=== PATIENT | female | born 1955 | race Caucasian/White ===

== ENCOUNTER 2017-01-16 10:19 | Day surgery (SDC) | payer MEDICARE, OTHER ==
[~2017-01-16] VITALS: Ht 153.7 cm; Wt 52.2 kg
[~2017-01-16 10:19] MED LIST: AMOXICILLIN/CL500 MG PO; ASPIR-8181 MG OR; ASPIRIN LOW DOS81 M1 PO; ATIVAN1 MG OR; ATIVAN1 MG PO; CALCIUM600 MG PO; CIPRO XR500 M1 OR; CIPROFLOXACN250 MG PO; CREON 20 OR; CREON1 CAP PO; CREON24 PO; CREON24000 UNT PO; DARVOCET-N100 MG OR; DICLOFENAC SODI1.5 % TOP; EQL IBUPROFEN200 MG PO; FLUARIX QUADRIV1 IN1 IM; FLUARIX QUADRIV1 INJ IM; GLIPIZIDE ER5 M1 PO; GLIPIZIDE ER5 MG PO; HYDROCODONE/ACE1 TA1 PO; HYDROCODONE/ACE1 TA7 PO; IMODIUM OR; LEVOTHYROXIN50 MC1 PO; LEVOTHYROXIN50 MCG PO; LORTAB 5/3255 MG PO; MULTIVITAMIN PO; OSCAL 500/1 TAB PO; PRAVASTATIN SOD20 MG PO; PRAVASTATIN20 MG PO; RESTORIL15 MG OR; RESTORIL15 MG PO; TEMAZEPAM30 MG PO; VALTREX500 MG OR; ZOLOFT100 MG OR; ZOLOFT100 MG PO; ZOLOFT50 MG PO; ZOMETA4 MG/5 ML IV; ZPAK PO; ZYRTEC-D ALG PO
[2017-01-16 14:25] VITALS: BP 106/52
== END 2017-01-16 14:35 | disposition home or self-care (01) ==
LOC: ENDO 10:19
PROVIDERS: ATTEND Internal Medicine Gastroenterology
PROC: 0DBN8ZX Excision of Sigmoid Colon, Via Natural or Artificial Opening Endoscopic, Diagnostic (ICD-10-PCS; principal; 2017-01-16)
DX: Z12.11 Encounter for screening for malignant neoplasm of colon (principal); D12.5 Benign neoplasm of sigmoid colon; K64.4 Residual hemorrhoidal skin tags; K64.8 Other hemorrhoids; R10.13 Epigastric pain; R11.10 Vomiting, unspecified; K59.00 Constipation, unspecified; E11.9 Type 2 diabetes mellitus without complications; C90.00 Multiple myeloma not having achieved remission; F32.9 Major depressive disorder, single episode, unspecified; E03.9 Hypothyroidism, unspecified; Z94.84 Stem cells transplant status; Z86.010 Personal history of colon polyps; Z90.3 Acquired absence of stomach [part of]; Z90.411 Acquired partial absence of pancreas

== ENCOUNTER 2017-02-13 06:50 | Day surgery (SDC) | payer MEDICARE, OTHER ==
[2017-02-13 09:28] VITALS: BP 96/57
== END 2017-02-13 09:31 | disposition home or self-care (01) ==
LOC: ORM 06:50
PROVIDERS: ATTEND Internal Medicine Gastroenterology
PROC: 0DB98ZX Excision of Duodenum, Via Natural or Artificial Opening Endoscopic, Diagnostic (ICD-10-PCS; principal; 2017-02-13)
DX: R10.12 Left upper quadrant pain (principal); R14.0 Abdominal distension (gaseous); K29.70 Gastritis, unspecified, without bleeding; K21.9 Gastro-esophageal reflux disease without esophagitis; K26.9 Duodenal ulcer, unspecified as acute or chronic, without hemorrhage or perforation; K29.80 Duodenitis without bleeding; K86.89 Other specified diseases of pancreas; K59.00 Constipation, unspecified; E11.9 Type 2 diabetes mellitus without complications; E03.9 Hypothyroidism, unspecified; F32.9 Major depressive disorder, single episode, unspecified; C90.00 Multiple myeloma not having achieved remission; Z94.84 Stem cells transplant status; Z86.010 Personal history of colon polyps; Z98.890 Other specified postprocedural states

== ENCOUNTER → 2018-01-13 | Outpatient (REF) | payer MEDICARE, OTHER ==
[2018-01-13 09:26] LABS: ALBUMIN 4.3 g/dL (3.2-5.0); ALKALINE PHOSPHATASE 86 u/l (38-126); ANION GAP 14 (6-22 (CALC)); BILIRUBIN, TOTAL 0.3 mg/dL (0.0-1.4); BUN 29 mg/dL (8-23); BUN/CREATININE RATIO 32 (12-20 (CALC)); CALCULATED LDLCHOLESTEROL 94 mg/dL (62-129 (CALC)); CARBON DIOXIDE 21 mmol/l (22-30); CHLORIDE 111 mmol/l (95-108); CHOLESTEROL HDL RATIO 3.1 (<4.4 (CALC)); CREATININE 0.9 mg/dL (0.5-1.0); GFR > 60 ML/MIN (>=60 (CALC)); GFR FOR AFR.AMER. > 60 ML/MIN (>=60 (CALC)); HDL CHOLESTEROL 59 mg/dL (>=40); POTASSIUM 4.5 mmol/l (3.5-5.1); SGOT/AST 41 u/l (9-36); SODIUM 141 mmol/l (137-146); TOTAL CHOLESTEROL 183 mg/dl (0-199); TOTAL PROTEIN 7.7 g/dL (6.3-8.2); TRIGLYCERIDES REFLEX TO dLDL 147 mg/dl (30-149); VLDL CHOLESTROL 29 mg/dl (1-41 (CALC))
[2018-01-13 09:40] LABS: HEMATOCRIT 34.8 % (37.0-47.0); HEMOGLOBIN 11.1 g/dl (12.0-16.0); IMMATURE GRANULOCYTES 0.3 % (0.0-5.0); MEAN CELL VOLUME 100.9 fL CALC (80.0-100.0); MEAN CORPUSCULAR HGB 32.2 pG CALC (26.0-32.0); MEAN CORPUSCULAR HGB CONC 31.9 g/L CALC (32.0-36.0); NEUT# 3.86 thou/uL (2.00-7.15); RED BLOOD COUNT 3.45 mill/uL (4.20-5.60); RED CELL DISTRI WIDTH 12.6 % (11.5-15.5)
[2018-01-13 09:54] LABS: TSH, 3RD GENERATION 5.09 uIU/mL (0.47 - 4.68)
== END | disposition home or self-care (01) ==
LOC: LAB 08:26
PROVIDERS: ATTEND Internal Medicine Geriatric Medicine
DX: E78.5 Hyperlipidemia, unspecified (principal); E11.9 Type 2 diabetes mellitus without complications; E03.9 Hypothyroidism, unspecified; D64.9 Anemia, unspecified

== ENCOUNTER 2018-04-09 05:01 | Emergency (ER) | payer MEDICARE, OTHER ==
[~2018-04-09] VITALS: Ht 153.7 cm; Wt 44.0 kg
[2018-04-09 05:46] LABS: HEMATOCRIT 32.9 % (37.0-47.0); HEMOGLOBIN 10.8 g/dl (12.0-16.0); IMMATURE GRANULOCYTES 0.4 % (0.0-5.0); MEAN CORPUSCULAR HGB 32.8 pG CALC (26.0-32.0); MEAN CORPUSCULAR HGB CONC 32.8 g/L CALC (32.0-36.0); NEUT# 9.19 thou/uL (2.00-7.15); RED BLOOD COUNT 3.29 mill/uL (4.20-5.60)
[2018-04-09 05:47] LABS: URINE BILIRUBIN - DIPSTICK NEGATIVE (NEGATIVE); URINE BLOOD DIPSTICK LARGE (NEGATIVE); URINE COLOR YELLOW; URINE GLUCOSE - DIPSTICK NEGATIVE (NEGATIVE); URINE KETONE NEGATIVE (NEGATIVE); URINE LEUK ESTERASE NEGATIVE (NEGATIVE); URINE NITRITE - DIPSTICK NEGATIVE (Negative); URINE PH 5.5 (4.5-8.0); URINE PROTEIN - DIPSTICK NEGATIVE (NEG-TRACE); URINE SPECIFIC GRAVITY >=1.030; URINE UROBILINOGEN - DIPSTICK 0.2 E.U./dL (0.2)
[2018-04-09 05:59] LABS: ALKALINE PHOSPHATASE 78 u/l (38-126); AMYLASE < 30 u/l (30-110); ANION GAP 15 (6-22 (CALC)); BILIRUBIN, TOTAL 0.1 mg/dL (0.0-1.4); BUN 34 mg/dL (8-23); BUN/CREATININE RATIO 34 (12-20 (CALC)); CARBON DIOXIDE 20 mmol/l (22-30); CHLORIDE 108 mmol/l (95-108); GFR 56 ML/MIN (>=60 (CALC)); GFR FOR AFR.AMER. > 60 ML/MIN (>=60 (CALC)); LIPASE 10 u/l (23-300); POTASSIUM 4.4 mmol/l (3.5-5.1); SGOT/AST 32 u/l (9-36); SODIUM 139 mmol/l (137-146)
[2018-04-09 06:15] LABS: URINE BACTERIA RARE hpf; URINE RBC 25-50 RBC/hpf (0-5); URINE SQUAMOUS EPITHELIAL CELL FEW EPI/hpf (0-FEW); URINE WBC 0-2 WBC/hpf (0-5)
[2018-04-09] MEDS ORDERED: MOTRIN400 MG PO (07:24)
[2018-04-09] MEDS ORDERED: CEPHALEXIN500 MG PO (07:24)
[2018-04-09] MEDS ORDERED: TAMSULOSIN0.4 MG PO (07:24)
[2018-04-09] MEDS ORDERED: HYDROCO/APAP1 TA9 PO (07:24)
[2018-04-09 07:26] VITALS: BP 144/65
== END 2018-04-09 07:42 | disposition home or self-care (01) ==
LOC: ED 05:01
PROVIDERS: Emergency Medicine
DX: N13.2 Hydronephrosis with renal and ureteral calculous obstruction (principal); M89.8X8 Other specified disorders of bone, other site; C90.00 Multiple myeloma not having achieved remission; R73.03 Prediabetes
CPT/HCPCS: Q9967

== ENCOUNTER 2019-04-17 08:43 | Observation (INO) | payer MEDICARE, OTHER ==
[~2019-04-17] VITALS: Ht 152.4 cm; Wt 57.4 kg
[~2019-04-17 08:43] MED LIST changes: +CEPHALEXIN500 MG PO; +HYDROCO/APAP1 TA9 PO; +MOTRIN400 MG PO; +TAMSULOSIN0.4 MG PO
[2019-04-17 09:15] LABS: HEMATOCRIT 34.5 % (37.0-47.0); IMMATURE GRANULOCYTES 0.4 % (0.0-5.0); MEAN CELL VOLUME 96.9 fL CALC (80.0-100.0); MEAN CORPUSCULAR HGB 30.9 pG CALC (26.0-32.0); MEAN CORPUSCULAR HGB CONC 31.9 g/L CALC (32.0-36.0); NEUT# 7.55 thou/uL (2.00-7.15); RED BLOOD COUNT 3.56 mill/uL (4.20-5.60); RED CELL DISTRI WIDTH 12.5 % (11.5-15.5)
[2019-04-17 09:29] LABS: ALBUMIN 4.4 g/dL (3.2-5.0); ALKALINE PHOSPHATASE 81 u/l (38-126); ANION GAP 16 (6-22 (CALC)); BUN 36 mg/dL (8-23); BUN/CREATININE RATIO 38 (12-20 (CALC)); CARBON DIOXIDE 23 mmol/l (22-30); CHLORIDE 102 mmol/l (95-108); GFR 56 ML/MIN (>=60 (CALC)); GFR FOR AFR.AMER. > 60 ML/MIN (>=60 (CALC)); POTASSIUM 4.5 mmol/l (3.5-5.1); SGOT/AST 33 u/l (9-36); SODIUM 137 mmol/l (137-146); TOTAL PROTEIN 7.9 g/dL (6.3-8.2)
[2019-04-17 09:30] LABS: BILIRUBIN, TOTAL 0.3 mg/dL (0.0-1.4)
[2019-04-17 09:33] LABS: AMYLASE 39 u/l (30-110); LIPASE < 10 u/l (23-300)
[2019-04-17 09:46] LABS: MYOGLOBIN 51 ng/mL (0 - 62)
[2019-04-17 10:18] LABS: URINE BILIRUBIN - DIPSTICK NEGATIVE (NEGATIVE); URINE BLOOD DIPSTICK NEGATIVE (NEGATIVE); URINE COLOR YELLOW; URINE GLUCOSE - DIPSTICK NEGATIVE (NEGATIVE); URINE KETONE NEGATIVE (NEGATIVE); URINE LEUK ESTERASE NEGATIVE (NEGATIVE); URINE NITRITE - DIPSTICK NEGATIVE (Negative); URINE PH 5.5 (4.5-8.0); URINE PROTEIN - DIPSTICK NEGATIVE (NEG-TRACE); URINE SPECIFIC GRAVITY 1.015; URINE UROBILINOGEN - DIPSTICK 0.2 E.U./dL (0.2)
[2019-04-17] MEDS ORDERED: METFORMIN500 M2 PO (10:33)
[2019-04-17 11:56] VITALS: BP 103/55
[2019-04-17 17:00] VITALS: BP 95/60
[2019-04-17 19:49] VITALS: BP 116/62
[2019-04-17 22:50] VITALS: BP 111/68
[2019-04-18 09:22] VITALS: BP 115/66
[2019-04-18 11:00] VITALS: BP 131/78
[2019-04-18 15:25] VITALS: BP 112/76
[2019-04-18 19:01] VITALS: BP 137/54
[2019-04-18 23:40] VITALS: BP 119/56
[2019-04-19 03:41] VITALS: BP 129/58
[2019-04-19 06:44] VITALS: BP 118/73
[2019-04-19 06:45] VITALS: BP 115/67; BP 119/74
[2019-04-19 07:57] VITALS: BP 101/64
[2019-04-19 11:15] VITALS: BP 125/69
== END 2019-04-19 12:14 | disposition home or self-care (01) ==
LOC: ED 08:43 → ED-I 11:00 → ED 11:12 → MS2 11:25
PROVIDERS: Emergency Medicine; ADMIT Internal Medicine; ATTEND Internal Medicine
DX: I95.1 Orthostatic hypotension (principal); E86.0 Dehydration; C90.01 Multiple myeloma in remission; E11.9 Type 2 diabetes mellitus without complications; K86.81 Exocrine pancreatic insufficiency; F41.9 Anxiety disorder, unspecified; F32.9 Major depressive disorder, single episode, unspecified; Z79.84 Long term (current) use of oral hypoglycemic drugs; Z94.84 Stem cells transplant status; Z90.411 Acquired partial absence of pancreas
CPT/HCPCS: G0378

== ENCOUNTER 2019-12-26 10:43 | Emergency (ER) | payer MEDICARE, OTHER ==
[~2019-12-26] VITALS: Ht 152.4 cm; Wt 60.0 kg
[~2019-12-26 10:43] MED LIST changes: +METFORMIN500 M2 PO
[2019-12-26] MEDS ORDERED: NAPROXEN500 MG PO (11:34)
[2019-12-26 12:44] VITALS: BP 148/67
[2019-12-26] MEDS ORDERED: TEMAZEPAM30 MG PO (12:46)
[2019-12-26] MEDS ORDERED: PRAVASTATIN SOD20 MG PO (12:49)
[2019-12-26] MEDS ORDERED: CREON24000 UNT PO (12:49)
== END 2019-12-26 11:55 | disposition home or self-care (01) ==
LOC: ED 10:43
DX: S93.401A Sprain of unspecified ligament of right ankle, initial encounter (principal); C90.00 Multiple myeloma not having achieved remission; E11.9 Type 2 diabetes mellitus without complications; X58.XXXA Exposure to other specified factors, initial encounter; Z87.311 Personal history of (healed) other pathological fracture

== ENCOUNTER 2021-12-30 11:19 | Emergency (ER) | payer MEDICARE, OTHER ==
[2021-12-30] VITALS (10 sets, daily range): BP systolic 101–128; BP diastolic 53–107
[~2021-12-30] VITALS: Ht 152.4 cm; Wt 55.4 kg
[~2021-12-30 11:19] MED LIST changes: +NAPROXEN500 MG PO
[2021-12-30 12:45] LABS: HEMOGLOBIN 11.1 g/dl (12.0-16.0); MEAN CELL VOLUME 98.3 fL CALC (80.0-100.0); MEAN CORPUSCULAR HGB 32.1 pG CALC (26.0-32.0); MEAN CORPUSCULAR HGB CONC 32.6 g/dL CAL (32.0-36.0); RED BLOOD COUNT 3.46 mill/uL (4.20-5.60); RED CELL DISTRI WIDTH 14.5 % (11.5-15.5)
[2021-12-30 12:46] LABS: NEUT# 7.73 thou/uL (2.00-7.15)
[2021-12-30 12:53] LABS: IMMATURE GRANULOCYTES 0.1 % (0.0-5.0)
[2021-12-30 13:01] LABS: ACT PARTIAL THROMBO TIME 20.2 SECONDS (20.0-32.5); PROTHROMBIN TIME 9.7 SECONDS (9.0-12.5)
[2021-12-30 13:51] LABS: URINE COLOR YELLOW
[2021-12-30 13:52] LABS: URINE BILIRUBIN - DIPSTICK NEGATIVE (NEGATIVE); URINE BLOOD DIPSTICK NEGATIVE (NEGATIVE); URINE GLUCOSE - DIPSTICK >=1000 mg/dL (NEGATIVE); URINE KETONE NEGATIVE (NEGATIVE); URINE LEUK ESTERASE NEGATIVE (NEGATIVE); URINE NITRITE - DIPSTICK NEGATIVE (Negative); URINE PH 5.5 (4.5-8.0); URINE PROTEIN - DIPSTICK NEGATIVE (NEG-TRACE); URINE SPECIFIC GRAVITY 1.015; URINE UROBILINOGEN - DIPSTICK 0.2 E.U./dL (0.2)
[2021-12-30 13:55] LABS: ALBUMIN 4.4 g/dL (3.2-5.0); ANION GAP 16 (6-22 (CALC)); BILIRUBIN, TOTAL 0.2 mg/dL (0.0-1.4); BUN 24 mg/dL (8-23); BUN/CREATININE RATIO 31 (12-20 (CALC)); CARBON DIOXIDE 18 mmol/l (22-30); CHLORIDE 109 mmol/l (95-108); CPK 25 u/l (30-165); CREATININE 0.8 mg/dL (0.5-1.0); GFR FOR AFR.AMER. > 60 ML/MIN (>=60 (CALC)); GFR OTHER RACES > 60 ML/MIN (>=60 (CALC)); MYOGLOBIN 55 ng/mL (0 - 62); POTASSIUM 4.1 mmol/l (3.5-5.1); SODIUM 139 mmol/l (137-146); TOTAL PROTEIN 7.7 g/dL (6.3-8.2)
[2021-12-30 13:59] LABS: ALKALINE PHOSPHATASE 141 u/l (38-126); MAGNESIUM 1.5 mg/dL (1.6-2.3); SGOT/AST 315 u/l (9-36)
[2021-12-30] MEDS ORDERED: MAGNESIUM OXID400 M1 PO (15:21)
== END 2021-12-30 15:45 | disposition home or self-care (01) ==
LOC: ED 11:19
PROVIDERS: Family Medicine
DX: R53.1 Weakness (principal); E83.42 Hypomagnesemia; R74.8 Abnormal levels of other serum enzymes; E11.9 Type 2 diabetes mellitus without complications; C90.00 Multiple myeloma not having achieved remission; D64.81 Anemia due to antineoplastic chemotherapy; T45.1X5A Adverse effect of antineoplastic and immunosuppressive drugs, initial encounter; Z79.84 Long term (current) use of oral hypoglycemic drugs
CPT/HCPCS: Q9967

== ENCOUNTER 2023-11-11 19:09 | Inpatient (IN) | payer MEDICARE, OTHER ==
[2023-11-11] VITALS (16 sets, daily range): BP systolic 103–124; BP diastolic 45–80
[~2023-11-11] VITALS: Ht 152.4 cm; Wt 47.2 kg
[~2023-11-11 19:09] MED LIST changes: +ATIVAN1 M1 PO; +FOLATE400 MCG PO; +MAGNESIUM OXID400 M1 PO; +PRESERVISION AREDS 2 PO; +VALTREX500 MG PO; +VITAMIN C1000 MG PO; +VITAMIN D325 MCG PO
[2023-11-11] MEDS ORDERED: VANCOMYCIN HCL 1 GM in SODIUM CHLORIDE 0.9% 250 ML IV STA (19:16)
[2023-11-11] MEDS ORDERED: PIPERACILLIN Sodium-Tazobactam 4.5 GM in SODIUM CHLORIDE 0.9% 100 ML IV ONE (19:20)
[2023-11-11] MEDS ORDERED: SODIUM CHLORIDE 0.9% 1,000 ML BAG IV ONE (19:20)
[2023-11-11 19:46] LABS: BASO% 0.1 % (0-3); EOS% 0.4 % (0-8); HEMATOCRIT 26.7 % (37.0-47.0); HEMOGLOBIN 8.8 g/dl (12.0-16.0); IMMATURE GRANULOCYTES 1.6 % (0.0-5.0); LYMPH% 3.9 % (15-41); MEAN CELL VOLUME 103.5 fL CALC (80.0-100.0); MEAN CORPUSCULAR HGB 34.1 pG CALC (26.0-32.0); MONO% 11.6 % (2-13); NEUT# 14.54 thou/uL (2.00-7.15); NEUT% 82.4 % (42-76); RED BLOOD COUNT 2.58 mill/uL (4.20-5.60); RED CELL DISTRI WIDTH 14.1 % (11.5-15.5)
[2023-11-11 19:54] LABS: ALBUMIN 3.1 g/dL (3.2-5.0); ALKALINE PHOSPHATASE 85 u/l (38-126); ANION GAP 12 (6-22 (CALC)); BILIRUBIN, TOTAL 0.2 mg/dL (0.02-1.3); BUN 39 mg/dL (8-23); BUN/CREATININE RATIO 27 (12-20 (CALC)); CARBON DIOXIDE 17 mmol/l (22-30); CHLORIDE 110 mmol/l (95-108); CREATININE 1.4 mg/dL (0.5-1.0); ESTIMATED GFR 41 ML/MIN (>=90 (CALC)); POTASSIUM 3.8 mmol/l (3.5-5.1); SGOT/AST 26 u/l (9-36); SODIUM 135 mmol/l (137-146)
[2023-11-11 20:10] LABS: ACT PARTIAL THROMBO TIME 28.5 SECONDS (20.0-32.5)
[2023-11-11 20:12] LABS: INTERNATIONAL NORMALIZED RATIO 1.3 RATIO (0.7-1.3); PROTHROMBIN TIME 12.7 SECONDS (9.0-12.5)
[2023-11-11] MEDS ORDERED: ACETAMINOPHEN 325 MG/TAB PO PRN (21:25)
[2023-11-11] MEDS ORDERED: MAGNESIUM HYDROXIDE 30 ML UDC PO PRN (21:25)
[2023-11-11] MEDS ORDERED: SODIUM CHLORIDE 0.9% 1,000 ML IV PRN (21:25)
[2023-11-11] MEDS ORDERED: Heparin SODIUM (Porcine) 5,000 UNITS/ML SDV SC SCH (21:50)
[2023-11-11] MEDS ORDERED: CEFEPIME HYDROCHLORIDE 1 GM in SODIUM CHLORIDE 0.9% 50 ML IV SCH (22:00)
[2023-11-11 22:18] LABS: URINE BILIRUBIN - DIPSTICK Negative (NEGATIVE); URINE BLOOD DIPSTICK Negative (NEGATIVE); URINE GLUCOSE - DIPSTICK Negative (NEGATIVE); URINE KETONE Negative (NEGATIVE); URINE LEUK ESTERASE Negative (NEGATIVE); URINE NITRITE - DIPSTICK Negative (Negative); URINE PH 5.5 (4.5-8.0); URINE PROTEIN - DIPSTICK 30 mg/dL (NEG-TRACE); URINE UROBILINOGEN - DIPSTICK 0.2 E.U./dL (0.2)
[2023-11-11 22:28] LABS: URINE COLOR Yellow
[2023-11-11 22:39] LABS: URINE BACTERIA FEW hpf
--- NOTE | 2023-11-11 23:19 | NUR ---
TO CT VIA STRETCHER. IV FLUIDS/ANTIBIOTICS COMPLETED. PT HAS VOIDED X 2 AND PASSED STOOL X 3. STOOL SAMPLE SENT.
--- NOTE | 2023-11-12 00:15 | NUR ---
REPORT TO GABRIEL MA/ICU.
[2023-11-12] MEDS ORDERED: PHILLIPS MOM311 MG PO (00:29)
[2023-11-12] MEDS ORDERED: KLOR-CON M1010 MEQ PO (00:31)
[2023-11-12] MEDS ORDERED: B-COMPL12 PO (00:33)
[2023-11-12] MEDS ORDERED: TEMAZEPAM30 MG PO (00:34)
[2023-11-12] MEDS ORDERED: ALL DAY ALLG10 MG PO (00:34)
[2023-11-12] MEDS ORDERED: METAMUCIL0.36 GM (00:35)
[2023-11-12] MEDS ORDERED: TRICOR145 MG PO (00:36)
--- NOTE | 2023-11-12 00:37 | NUR ---
MED REC COMPLETED. PT TO FLOOR VIA STRETCHER.
[2023-11-12] MEDS ORDERED: VANCOMYCIN HCL 125 MG/CAP PO SCH (06:00)
--- NOTE | 2023-11-12 07:51 | NUR ---
PT RESTING IN BED, NO COMPLAINTS AT THIS TIME, CALLED AND WAS UPDATED ON PTS STATUS PER PTS WANTS. AOX3, VSS, NSR ON MONITOR. PAIN DENIES PAIN AT THIS TIME. PT ON CONTACT PRECAUTIONS FOR CDIFF
[2023-11-12] MEDS ORDERED: LORazepam 1 MG/TAB PO PRN (07:55)
[2023-11-12 08:05] LABS: BASO% 0.1 % (0-3); EOS% 0.1 % (0-8); HEMATOCRIT 23.5 % (37.0-47.0); HEMOGLOBIN 7.7 g/dl (12.0-16.0); IMMATURE GRANULOCYTES 1.7 % (0.0-5.0); LYMPH% 4.7 % (15-41); MEAN CELL VOLUME 102.6 fL CALC (80.0-100.0); MEAN CORPUSCULAR HGB 33.6 pG CALC (26.0-32.0); MEAN CORPUSCULAR HGB CONC 32.8 g/dL CAL (32.0-36.0); MONO% 10.9 % (2-13); NEUT# 12.75 thou/uL (2.00-7.15); NEUT% 82.5 % (42-76); RED BLOOD COUNT 2.29 mill/uL (4.20-5.60); RED CELL DISTRI WIDTH 14.1 % (11.5-15.5)
[2023-11-12 08:24] LABS: BILIRUBIN, TOTAL 0.2 mg/dL (0.02-1.3); CREATININE 1.1 mg/dL (0.5-1.0)
[2023-11-12 08:31] LABS: ALBUMIN 2.1 g/dL (3.2-5.0); POTASSIUM 2.9 mmol/l (3.5-5.1); TOTAL PROTEIN 4.4 g/dL (6.3-8.2)
--- NOTE | 2023-11-12 09:50 | NUR ---
PT IS RESTING IN BED WITH EYES CLOSED, NO DISTRESS NOTED. PT IN SEMI FOWLERS POSITION ON CARDIAC MONITORING SYSTEM. CALL LIGHT IN REACH AND BED IN LOW POSITION WITH WHEELS LOCKED
[2023-11-12] MEDS ORDERED: PANCREATIC ENZYMES 12 000 UNITS LIPASE PO SCH (11:00)
--- NOTE | 2023-11-12 11:50 | NUR ---
PT IS SITTING UP IN BED EATING MEAL, WHEN ASKED ABOUT DISTRESS OR PAIN PT STATES THAT SHE REMAINS PAIN FREE AND HAS NO COMPLAINTS AT THIS TIME. WILL CONTINUE TO MONITOR FOR SAFETY.
[2023-11-12] MEDS ORDERED: MAGNESIUM SULFATE HEPTAHYDRATE 50 ML IV SCH (13:30)
[2023-11-12] MEDS ORDERED: POTASSIUM CHLORIDE 20 MEQ/TAB PO SCH (13:30)
--- NOTE | 2023-11-12 13:50 | NUR ---
PT IS SITTING IN BED COMFORTABLY WATCHING TV. PT WAS CHANGED AND GIVEN A SMALL BED BATH DUE TO HAVING INCONTINENT EPISODE WITH STOOL. PT IS ON ISOLATION PRECAUTIONS DUE TO CDIFF AND SALMONELLA. PT DENIES PAIN.
--- NOTE | 2023-11-12 15:50 | NUR ---
PT IS RESTING PEACEFULLY WITH EYES CLOSED. VSS, NO CONCERNS OR DISTRESS. BED IN LOW POSITION WITH WHEELS LOCKED. CALL LIGHT IN REACH AND CARDIAC MONITORING IN PLACE
--- NOTE | 2023-11-12 17:50 | NUR ---
PT IN BED EATING DINNER, VOICES NO CONCERNS AT THIS TIME. VSS, WILL CONTINUE TO MONITOR
--- NOTE | 2023-11-12 18:50 | NUR ---
SBAR REPORT GIVEN TO ADELA RIOS
--- NOTE | 2023-11-12 19:00 | NUR ---
RECEIVED REPORT FROM PREVIOUS NURSE. CALL LIGHT IS AT BEDSIDE. NO C/O PAIN OR SOB AT THIS TIME.
[2023-11-12 19:54] VITALS: BP 122/80
[2023-11-12] MEDS ORDERED: SODIUM CHLORIDE 0.9% 500 ML IV SCH (20:15)
[2023-11-12] MEDS ORDERED: TEMAZEPAM 15 MG/CAP PO SCH (21:00)
[2023-11-12 21:50] VITALS: BP 124/57
[2023-11-12 22:18] VITALS: BP 118/57
--- NOTE | 2023-11-12 22:50 | NUR ---
PATIENT VITALS ARE WITHIN NORMAL LIMITS. NO C/O PAIN , NO C/O SOB. PT CONSENTED TO RECEIVING PACKED RED BLOOD CELLS.PATIENT IS VERIFIED AND TOLERATING TRANSFUSION AT THIS TIME. CALL LIGHT IS AT BED SIDE.
[2023-11-12 23:03] VITALS: BP 122/51
[2023-11-12 23:56] VITALS: BP 122/51
[2023-11-13] VITALS (18 sets, daily range): BP systolic 105–139; BP diastolic 48–68
--- NOTE | 2023-11-13 00:35 | NUR ---
PATIENT TRANSFUSION COMPLETED. PT'S VS REMAIND WNL. CALL LIGHT IS AT BEDSIDE
--- NOTE | 2023-11-13 04:15 | NUR ---
PATIENT CLEANED. NO REPORTS OF PAIN OR SOB. NEW IV LINE STARTED DUE TO ACCIDENTAL REMOVAL BY PATIENT. PT NOW HAS A 22 IN HER LEFT WRIST. CALL LIGHT IS WITHIN REACH.
[2023-11-13 05:10] LABS: MEAN CELL VOLUME 97.1 fL CALC (80.0-100.0); MEAN CORPUSCULAR HGB 32.7 pG CALC (26.0-32.0); MEAN CORPUSCULAR HGB CONC 33.7 g/dL CAL (32.0-36.0); RED BLOOD COUNT 3.42 mill/uL (4.20-5.60); RED CELL DISTRI WIDTH 14.9 % (11.5-15.5)
[2023-11-13 05:24] LABS: HEMATOCRIT 33.2 % (37.0-47.0); HEMOGLOBIN 11.2 g/dl (12.0-16.0)
[2023-11-13 05:38] LABS: BILIRUBIN, TOTAL 0.3 mg/dL (0.02-1.3); CREATININE 0.9 mg/dL (0.5-1.0); MAGNESIUM 1.6 mg/dL (1.6-2.3); POTASSIUM 3.4 mmol/l (3.5-5.1); TOTAL PROTEIN 4.3 g/dL (6.3-8.2)
--- NOTE | 2023-11-13 06:22 | NUR ---
PATIENT CLEANED. CALL LIGHT IS WITHIN REACH. MED PASS COMPLETED. PATIENT IS CURRENTLY IN BED.
--- NOTE | 2023-11-13 07:33 | NUR ---
Dr Anderson present at bedside to assess pt and discuss plan of care
--- NOTE | 2023-11-13 07:33 | NUR ---
pt awake in bed; no apparent distress noted; pt offers no complaints; assessment completed at this time; pt alert and oriented; denies pain; no n/v noted; resp even and unlabored; lungs clear; skin color wnl; ra; hr reg; pulses present; no edema noted; st on monitor; abd soft/tender with bs present; pt with freq loose stool, precautions continued; purewick intact with clear yellow urine; adult brief in place; pt instructed to notify staff of stool incont for pericare; #22 to lw patent with ivf infusing without complication; no redness or edema noted at site; redness noted to coccyx, freq loose stools; plan of care/ am meds explained; call light within reach; will continue to monitor
--- NOTE | 2023-11-13 08:13 | NUR ---
awake in bed eating breakfast; offers no complaints; iv intact; call light within reach; will continue to monitor
--- NOTE | 2023-11-13 10:19 | NUR ---
resting in bed with eyes closed; no apparent distress noted; iv intact and patent; st on monitor; call light within reach; will continue to monitor
--- NOTE | 2023-11-13 12:03 | NUR ---
awake in bed eating lunch; offers no complaints; iv intact and patent; no redness or edema noted at site; st on monitor; call light within reach; will continue to monitor
--- NOTE | 2023-11-13 12:05 | NUR ---
telehealth consult completed with SERJIO Campoverde
--- NOTE | 2023-11-13 14:14 | NUR ---
awake in bed; pericare per staff; offers no complaints; iv intact and patent; st on monitor; call light within reach; will continue to monitor
--- NOTE | 2023-11-13 16:12 | NUR ---
awake in bed; offers no complaints; no apparent distress noted; st on monitor; call light within reach; will continue to monitor
[2023-11-13] MEDS ORDERED: VANCOMYCIN HCL 125 MG/CAP PO SCH (18:00)
--- NOTE | 2023-11-13 18:01 | NUR ---
pt awake in bed eating dinner; offers no complaints; iv intact and patent; no redness or edema noted at site; st on monitor; call light within reach
[2023-11-13] MEDS ORDERED: MAGNESIUM SULFATE HEPTAHYDRATE 50 ML IV SCH (19:10)
[2023-11-13] MEDS ORDERED: POTASSIUM CHLORIDE 20 MEQ/TAB PO SCH (19:10)
--- NOTE | 2023-11-13 20:00 | NUR ---
PATIENT BS 303, NEW ORDER FOR FOR MEDIUM SLIDING SCALE.
--- NOTE | 2023-11-13 20:00 | NUR ---
RECEIVED REPORT FO NURSE MONICA NEGRON RESTING IN BED, ALERT ORIENTED, CALLED HAD A BM X 1 YELOO IN COLOR SOFT, IV ON 18 ON LT WRIST NS @ 100CC/HR INFUSING WELL, IV ON RAC G 20 OCCLUDED, REMOVED, ON NEUROPSYCHIATRIC AIDE, MONICA FEBRILE 101.2, WILL MEDICATE, PATIENT CLEANED, CALL LIGHT IN REACHED.
[2023-11-13] MEDS ORDERED: DEXTROSE 50% 50 ML/SYR IV PRN (20:15)
[2023-11-13] MEDS ORDERED: DEXTROSE 250 ML IV PRN (20:15)
[2023-11-13] MEDS ORDERED: INSULIN LISPRO 100 UNITS/ML ML SC SCH (21:00)
--- NOTE | 2023-11-13 21:43 | NUR ---
PATIENT HAD ANOTHER BM SMALL LOOSE, PATIENT CLEANED, NOT IN DISTRESS, CALL LIHT IN REACHED.
[2023-11-14] VITALS (28 sets, daily range): BP systolic 74–159; BP diastolic 37–73
--- NOTE | 2023-11-14 00:16 | NUR ---
DUE PO VANCO GIVEN, PATIENT AFEBRILE A THIS TIME, BREATHING UNLABORED CALL LIGHT IN REACHED.
--- NOTE | 2023-11-14 02:00 | NUR ---
PATIENT TURNED AND REPOSITIONED, PATIENT NOT IN DISTRESS, CALL LIGHT IN REACHED.
--- NOTE | 2023-11-14 04:33 | NUR ---
MONICA C/O HEADACHE, MONICA HAD ANOTHER BM X 3 LOOSE, PATIENT CLEANED, PATIENT BLOOD SUGAR CHECKED 179.PATIENT CURRENTLY RESTING ON LEFT SIDE, CALL LIGHT IN REACHED.
--- NOTE | 2023-11-14 05:55 | NUR ---
PATIENT RESTING IN BED. RELIEVED FROM HEADACHE, NOT IN DISTRESS, BREATHING UNLABORED CALL LIGHT IN REACHED, REAMAINS ON CONTACT PLUS ISOLATION, CALL LIGHT IN REACHED.
[2023-11-14 06:29] LABS: HEMATOCRIT 32.6 % (37.0-47.0); HEMOGLOBIN 11.1 g/dl (12.0-16.0); MEAN CELL VOLUME 96.7 fL CALC (80.0-100.0); MEAN CORPUSCULAR HGB 32.9 pG CALC (26.0-32.0); RED BLOOD COUNT 3.37 mill/uL (4.20-5.60); RED CELL DISTRI WIDTH 15.3 % (11.5-15.5)
[2023-11-14 06:43] LABS: ALBUMIN 1.9 g/dL (3.2-5.0); BILIRUBIN, TOTAL 0.4 mg/dL (0.02-1.3); CREATININE 0.9 mg/dL (0.5-1.0); MAGNESIUM 1.9 mg/dL (1.6-2.3); TOTAL PROTEIN 4.2 g/dL (6.3-8.2)
--- NOTE | 2023-11-14 07:10 | NUR ---
PT LAYING IN BED RESTING WITH EYES CLOSED, AROUSES EASILY TO VERBAL STIMULI, PT A&O X3, DENIES ANY PAIN AT THIS TIME, PUPILS ARE PERRL, BREATHING IS EVEN AND UNLABORED, LUNG SOUNDS CLEAR IN ALL BANDA, HEART SOUNDS NORMAL S1 S2, ABD SOFT AND DISTENDED WITH ACTIVE BOWEL SOUNDS, STRONG RADIAL PULSES, WEAK PEDAL PULSES, SAFETY MEASURES REINFORCED, CALL PAIGE WITHIN REACH
--- NOTE | 2023-11-14 08:00 | NUR ---
SETUP ASSISTANCE PROVIDED WITH KELVIN PHAM
[2023-11-14] MEDS ORDERED: YEAST (S. BOULARDII)(S. CEREVI 250 MG CAP PO SCH (09:00)
--- NOTE | 2023-11-14 09:00 | NUR ---
PT ASSISTED WITH GETTING FRESHENED UP, MINIMAL ASSISTANCE NEEDED, PT TOLERATED WELL, CALL PAIGE WITHIN REACH
--- NOTE | 2023-11-14 09:15 | NUR ---
PT HAS A VISITOR AT BEDSIDE, VERBALIZES NO COMPLAINTS, CALL PAIGE WITHIN REACH
[2023-11-14] MEDS ORDERED: ZINC OXIDE TOP SCH (09:30)
[2023-11-14] MEDS ORDERED: BOUDREAUX'S BUTT PASTE ZINC OXIDE 57 G PASTE EX SCH (09:30)
--- NOTE | 2023-11-14 10:00 | NUR ---
PT ASSISTED WITH GETTING OUT OF BED TO THE RECLINER, PT AMBULATED WITH A SLOW UNSTEADY GAIT, ONCE SEATED IN THE RECLINER PT WANTED THE BSC, PT ASSISTED TO THE BSC, PT ASSISTED WITH GETTING CLEANED UP AND GETTING BACK TO BED PER PT'S REQUEST. SAFETY MEASURES REINFORCED, CALL PAIGE WITHIN REACH
[2023-11-14] MEDS ORDERED: CIPROFLOXACIN 250 MG/TAB PO SCH (11:30)
--- NOTE | 2023-11-14 11:55 | NUR ---
SETUP ASSISTANCE PROVIDED WITH LUNCH TRAY, PT DENIES ANY OTHER NEEDS AT THIS TIME, CALL PAIGE WITHIN REACH
--- NOTE | 2023-11-14 13:15 | NUR ---
PT ASSISTED WITH REPOSITIONING, PT VERBALIZED NO COMPLAINTS AT THIS TIME, CALL PAIGE WITHIN REACH
--- NOTE | 2023-11-14 14:09 | NUR ---
VISITOR AT BEDSIDE
--- NOTE | 2023-11-14 17:15 | NUR ---
SETUP ASSISTANCE PROVIDED WITH PM MEAL
--- NOTE | 2023-11-14 18:32 | NUR ---
PT CHANGED MULTIPLE TIMES TODAY, PT EDUCATED ABOUT THE IMPORTANCE OF LETTING STAFF KNOW WHEN SHE FEELS THE NEED TO HAVE A BM TO HELP PREVENT SKIN BREAK DOWN, PT VERBALIZED UNDERSTANDING
--- NOTE | 2023-11-14 20:00 | NUR ---
RECEIVED REPORT FROM NURSE KAT, PATIENT RESTING IN BED, PATIENT ALERT ORIENTED, PATINET FEELS WEAK, PATINET HAD A BM CALLED NOT ABLE TO REACHED THE COMODE, PATINET CLEANED UP, PATINET IV ON LEFT WRIST G 22 NS INFUSING WELL AT 100CC/HR, HOOKED ON CURRENCY EXCHANGE SPECIALIST SINUS TACH ON MONITOR, PATINET LUNG SOUNDS CLEAR, DENIES PAIN AT THSI TIME, SOME REDNESS NOTED ON RECTAL AREA FROM FREQUENT BM. BUTT PASTE APPLIED, CALL LIGHT IN REACHED.
--- NOTE | 2023-11-14 22:20 | NUR ---
MONICA ASSISTED TO BED SIDE COMODE BM LOOSE MEDIUM, PERICARE PROVIDED, APPLIED BARRIER CREAM, MONICA BACK IN BED, CALL LIGHT IN REACHED.
[2023-11-15] VITALS (18 sets, daily range): BP systolic 98–127; BP diastolic 43–65
--- NOTE | 2023-11-15 00:17 | NUR ---
PATIENT HAD AN INCONTINENCE OF BOTH BOWEL AND BLADDER, PERINEAL CARE DONE, PATIENT REMAINS ON CONTACT PLUS FOR CDIFF AND SALMONELLA.
--- NOTE | 2023-11-15 02:02 | NUR ---
PATIENT RESTING IN BED,WITH EYES CLOSD, BREATING EVEN UNLABORED NO DISCOMFORTS NOTED AT THSI TIME.
--- NOTE | 2023-11-15 03:28 | NUR ---
PATIENT HAD ANOTHER BM LOOSE, YELLOWIH IN COLOR, PERICARE PROVIDED, PATIENY AFEBRILE 99.1 F, PATIENT NOTE IN DISTRESS, CALL LIGHT WITHIN REACHED.
--- NOTE | 2023-11-15 04:35 | NUR ---
PATIENT CALLED TO BE CHANGED,HAD ANOTHER BM LOOSE MOERATE.PATIENT INCONTINENT CARE PROVIDED,CALL LIGHT IN REACHED.
[2023-11-15 05:37] LABS: HEMATOCRIT 34.5 % (37.0-47.0); HEMOGLOBIN 11.6 g/dl (12.0-16.0); MEAN CELL VOLUME 98.9 fL CALC (80.0-100.0); MEAN CORPUSCULAR HGB 33.2 pG CALC (26.0-32.0); MEAN CORPUSCULAR HGB CONC 33.6 g/dL CAL (32.0-36.0); RED BLOOD COUNT 3.49 mill/uL (4.20-5.60); RED CELL DISTRI WIDTH 15.2 % (11.5-15.5)
[2023-11-15 05:43] LABS: ALBUMIN 1.7 g/dL (3.2-5.0); BILIRUBIN, TOTAL 0.3 mg/dL (0.02-1.3); CREATININE 0.9 mg/dL (0.5-1.0); MAGNESIUM 1.5 mg/dL (1.6-2.3); POTASSIUM 3.5 mmol/l (3.5-5.1); TOTAL PROTEIN 3.8 g/dL (6.3-8.2)
--- NOTE | 2023-11-15 06:06 | NUR ---
surinet resting in bed, eyes closed, breathing even unalabored call light within recahed.
[2023-11-15] MEDS ORDERED: MAGNESIUM SULFATE HEPTAHYDRATE 50 ML IV SCH (08:00)
--- NOTE | 2023-11-15 09:00 | NUR ---
PT CLEANED UP AND GIVEN A PARTIAL BATH, PT TURNS SELF MINIMAL ASSISTANCE IS NEEDED, PT TOLERATED WELL, PT REMINDED TO CALL FOR ASSISTANCE, CALL PIAGE WITHIN REACH
--- NOTE | 2023-11-15 09:45 | NUR ---
PT ASSISTED TO THE BSC & BACK TO BED PER PT REQUEST, PT AMBULATED WITH A SLOW UNSTEADY GAIT, PT TOLERATED WELL, CALL PAIGE WITHIN REACH
--- NOTE | 2023-11-15 10:13 | NUR ---
PT LAYING IN BED AWAKE WATCHING TV, PT A&O X 3, PUPILS PERRL, RESP. EVEN AND UNLABORED, LUNG SOUNDS ARE CLEAR, ABD SOFT AND DISTENDED WITH ACTIVE BOWEL SOUNDS, STRONG RADIAL AND PEDAL PULSES, 22G LW IV WITH FLUIDS INFUSING AT PRESCRIBED RATE, SAFETY MEASURES REINFORCED, CALL PAIGE WITHIN REACH
[2023-11-15] MEDS ORDERED: PANCREATIC ENZYMES 12 000 UNITS LIPASE PO SCH (11:00)
--- NOTE | 2023-11-15 11:40 | NUR ---
SETUP ASSISTANCE PROVIDED WITH LUNCH TRAY
--- NOTE | 2023-11-15 13:35 | NUR ---
PT TRANSFERRED TO [facility] NURSE TO FOLLOW TO CONTINUE CARE
--- NOTE | 2023-11-15 15:45 | NUR ---
PT SITTING UP IN THE BED TALKING ON HER PHONE, DENIES ANY NEEDS AT THIS TIME CALL PAIGE WITHIN REACH
--- NOTE | 2023-11-15 17:00 | NUR ---
SETUP ASSISTANCE PROVIDED WITH DINNER TRAY
--- NOTE | 2023-11-15 20:00 | NUR ---
RECEIVED REPORT FROM NURSE KELSEA, PATIENT ON CONTACT PLUS FOR CDIFF AND SALMONELLA, PATIENT APPEARS PALE, PATIENT IV ON RFA G 22 NS @ 100CC/HR INFUSING WELL, PATIENT ON TELEMETRY, PATIENT WAS ASSISTED BY SHOP MECHANIC HELPER TO BED SIDE COMODE THEN STATED THE SHE FORGOT WHERE SHE IS AND IS SO WEAK, FURTHER STATING THAT SHE IS NOT READY TO GO HOME IF SHE SHE WEAK BUT DOES NOT WANT TO GO TO REHAB, PATIENT WAS ASSISTED BACK IN BED, REASSURED AND FRANKE HAS PT CONSULT ORDERED, PATIENT BACK IN BED, CALL LIGHT IN REACHED.
[2023-11-16] VITALS (13 sets, daily range): BP systolic 92–150; BP diastolic 52–78
--- NOTE | 2023-11-16 | NUR ---
DUE PO VANCOMYCIN GIVEN, MONICA BACK IN BED, HAD ANOTHER BM, MONICA REMAINS ON ISOLATION, CALL LIGHT IN REACHED.
--- NOTE | 2023-11-16 04:26 | NUR ---
PATIENT ASSISTED BACK IN BED, HAD ANOTHER BM LOOSE, SCANT AMOUNT OF BLOOD NOTED IN POOP PATIENT HAS HEMORRHOIDS, DENIES PAIN CALL LIGHT IN REACHED.
[2023-11-16 05:07] LABS: HEMATOCRIT 34.2 % (37.0-47.0); HEMOGLOBIN 11.4 g/dl (12.0-16.0); MEAN CELL VOLUME 99.1 fL CALC (80.0-100.0); MEAN CORPUSCULAR HGB CONC 33.3 g/dL CAL (32.0-36.0); RED BLOOD COUNT 3.45 mill/uL (4.20-5.60); RED CELL DISTRI WIDTH 15.2 % (11.5-15.5)
[2023-11-16 05:10] LABS: ALBUMIN 1.7 g/dL (3.2-5.0); BILIRUBIN, TOTAL 0.4 mg/dL (0.02-1.3); CREATININE 0.7 mg/dL (0.5-1.0); MAGNESIUM 1.8 mg/dL (1.6-2.3); POTASSIUM 3.6 mmol/l (3.5-5.1); TOTAL PROTEIN 3.9 g/dL (6.3-8.2)
--- NOTE | 2023-11-16 08:35 | NUR ---
PT IS AOX4 SITTING UP IN BED WITH BREAKFAST. RESPIRATIONS ARE EVEN AND UNLABORED, LUNGS ARE CLEAR, BOWEL SOUNDS ARE ACTIVE IN ALL 4 QUADRANTS, PEDAL PULSES PALPABLE TO TOUCH, PT DOES REPORT FEELING "DISCOURAGED" WITH THE C-DIFF. DISCUSSED THE TREATMENT PLAN IN PLACE FOR HER AND PROVIDED EMOATIONAL SUPPORT AND ENCOURAGMENT.
--- NOTE | 2023-11-16 15:53 | NUR ---
PT SITTING UP IN BED WATCHING TV AT THIS TIME.
--- NOTE | 2023-11-16 16:02 | NUR ---
PT FEELING DISCOURAGED WITH BEING IN THE HOSPITAL. PROVIDED PT WITH EMOATIONAL SUPPORT NURSE ASSISTED HER FROM COMMODE TO THE BED. PT STILL HAVING LOSE STOOLS AT THIS TIME, RECTUM VERY RED AND SWOLLEN, CREAM APPLIED PER ORDER.
--- NOTE | 2023-11-16 19:05 | NUR ---
RECIEVED REPORT FROM NURSE ON PREVIOUS SHIFT. PATIENT IS AOX4. CALL LIGHT IS WITHIN REACH. NO REPORTS OF PAIN AT THIS TIME.
--- NOTE | 2023-11-16 23:40 | NUR ---
PT IS CLEANED AND CURRENTLY IN BED RESTING. CALL LIGHT IS WITHIN REACH.
[2023-11-17] VITALS (9 sets, daily range): BP systolic 125–135; BP diastolic 56–62
--- NOTE | 2023-11-17 04:02 | NUR ---
PATIENT IS RESTING IN BED WITH CALL IGHT WITHIN REACH
[2023-11-17 05:48] LABS: HEMATOCRIT 31.1 % (37.0-47.0); HEMOGLOBIN 10.4 g/dl (12.0-16.0); MEAN CELL VOLUME 98.7 fL CALC (80.0-100.0); MEAN CORPUSCULAR HGB CONC 33.4 g/dL CAL (32.0-36.0); RED BLOOD COUNT 3.15 mill/uL (4.20-5.60); RED CELL DISTRI WIDTH 15.1 % (11.5-15.5)
[2023-11-17 06:04] LABS: ALBUMIN 1.5 g/dL (3.2-5.0); CREATININE 0.8 mg/dL (0.5-1.0); MAGNESIUM 1.5 mg/dL (1.6-2.3); POTASSIUM 3.2 mmol/l (3.5-5.1); TOTAL PROTEIN 3.6 g/dL (6.3-8.2)
[2023-11-17 06:08] LABS: BILIRUBIN, TOTAL 0.2 mg/dL (0.02-1.3)
--- NOTE | 2023-11-17 07:13 | NUR ---
PT IS AOX3, SITTING UP IN THE CHAIR FOR BREAKFAST, RESPIRATIONS ARE EVEN AND UNLABORED, LUNGS ARE CLEAR, BOWEL SOUNDS ARE ACTIVE IN ALL 4 QUADRANTS, PEDAL PULSES ARE PALPABLE TO TOUCH, PT DENIES PAIN AT THIS TIME. PT REPORTED NOT "GETTING MUCH SLEEP" OVERNIGHT.
--- NOTE | 2023-11-17 08:00 | NUR ---
CALL PLACED TO PHARMACY TO NOTIFY WE NEED THE PATIENT'S DOSE OF CREON.
--- NOTE | 2023-11-17 11:31 | NUR ---
PT BRIEF CHANGED WITH RUNNY TO WATERY STOOL PRESENT. RECTUM NOT RED YESTERDAY, CREAM APPLIED.
[2023-11-17] MEDS ORDERED: MAGNESIUM SULFATE HEPTAHYDRATE 50 ML IV SCH (13:30)
--- NOTE | 2023-11-17 15:58 | NUR ---
ASSISTED PT TO BSC, HAD PT CLEAN HERSELF, WALKED PT TO THE SINK TO WASH HER HANDS AND BACK TO THE BED. PT TOLERATED WITH 1X ASSIST.
--- NOTE | 2023-11-17 19:50 | NUR ---
PATIENT IN BED RESTING. BED SIDE REPORT COMPLETED. RESPERATIONS EVEN AND UNLABORD. CLEAR LUNG SOUNDS. BOWEL SOUNDS PRESENT. ABDOMEN SOFT. PITTING EDEMA +2 ON LOWER LEGS. PATIENT CAN MAKE NEEDS KNOWN. BED IN LOWEST POSITION, CALL LIGHT WITHIN REACH.
--- NOTE | 2023-11-17 20:25 | NUR ---
PAITENT RESTING IN BED. CAN MAKE NEEDS KNOWN, NONE NEEDED AT THIS TIME.BED AT LOWEST POSITION, CALL LIGHT WITH IN REACH.
[2023-11-18] VITALS (11 sets, daily range): BP systolic 106–146; BP diastolic 52–64
--- NOTE | 2023-11-18 00:24 | NUR ---
PATIENT IN BED RESTING IN BED, EYES CLOSED. NO VISUAL SIGNS OF DISTRESS. RESPONDS TO VERBAL STIMULI. BED AT LOWEST POSITION, CALL LIGHT WITH IN REACH.
--- NOTE | 2023-11-18 04:10 | NUR ---
PATIENT AMBULATED TO BSC WITH STAND BY ASSIST. SMALL BM NOTED AND CHARTED. PATIENT IS ABLE TO PROVIDE HER OWN KRISTAN CARE AFTER BM. SHE AMBULATED BACK TO BED WITHOUT DIFFICULTY. DENIES NEEDING ANYTHING AT THIS TIME.
[2023-11-18 05:32] LABS: BASO% 0.5 % (0-3); HEMATOCRIT 30.5 % (37.0-47.0); HEMOGLOBIN 10.1 g/dl (12.0-16.0); IMMATURE GRANULOCYTES 1.9 % (0.0-5.0); LYMPH% 12.1 % (15-41); MEAN CELL VOLUME 99.3 fL CALC (80.0-100.0); MEAN CORPUSCULAR HGB 32.9 pG CALC (26.0-32.0); MEAN CORPUSCULAR HGB CONC 33.1 g/dL CAL (32.0-36.0); MONO% 14.5 % (2-13); NEUT# 4.16 thou/uL (2.00-7.15); RED BLOOD COUNT 3.07 mill/uL (4.20-5.60); RED CELL DISTRI WIDTH 15.2 % (11.5-15.5)
[2023-11-18 05:43] LABS: ALBUMIN 1.6 g/dL (3.2-5.0); BILIRUBIN, TOTAL 0.3 mg/dL (0.02-1.3); CREATININE 0.7 mg/dL (0.5-1.0); MAGNESIUM 1.9 mg/dL (1.6-2.3); POTASSIUM 2.8 mmol/l (3.5-5.1); TOTAL PROTEIN 3.6 g/dL (6.3-8.2)
--- NOTE | 2023-11-18 07:00 | NUR ---
REPORT RECEIVED FROM JAMARCUSRN
--- NOTE | 2023-11-18 07:50 | NUR ---
PT OOB RESTING IN RECLINER, A&O X3;ASSESSMENT COMPLETED;PT DENIES ANY CURRENT PAIN OR DISCOMFORTS,PAIN SCALE AND REPORTING EDUCATED;RESPIRATIONS EVEN AND UNLABORED ON RA,CLEAR LUNG SOUNDS;ABDOMEN SOFT ON PALPATION AND ACTIVE IN ALL 4 QUADRANTS;WEAK PEDAL PULSES;SKIN INTACT;TELE MONITORING IN PLACE;#22G TO LFA INFUSING NS @ 75ML/HR PER ORDER;ACCUCHECK 154, PT COVERED WITH SLIDING SCALE INSULIN PER ORDER;PT UNDER CONTACT PLUS PRECAUTIONS FOR C-DIFF;PT DENIES ANY ADDITIONAL NEEDS AND IS ENCOURAGED TO CALL FOR ASSISTANCE IF NEEDED;FALL PRECAUTIONS IN PLACE WITH BED IN THE LOWEST POSITION AND CALL LIGHT IN REACH;FREQUENT ROUNDS MADE.
[2023-11-18] MEDS ORDERED: POTASSIUM CHLORIDE 20 MEQ/TAB PO SCH (08:30)
[2023-11-18] MEDS ORDERED: POTASSIUM CHLORIDE 20MEQ 100 ML IV SCH (08:30)
--- NOTE | 2023-11-18 09:12 | NUR ---
PHYSICAL THERAPY AT BEDSIDE WORKING WITH PT.
--- NOTE | 2023-11-18 11:30 | NUR ---
PT RESTING IN SEMI FOWLERS POSITION WITH SPOUSE AT BEDSIDE;RESPIRATIONS EVEN AND UNLABORED ON RA;PT DENIES ANY CURRENT PAIN OR NEEDS;IV SITE PATENT INFUSING NS AND POTASSIUM PER ORDER;TELE MONITORING IN PLACE;ACCUCHECK 225, PT COVERED WITH SLIDING SCALE INSULIN PER ORDER;PT REMAINS UNDER CONTACT PLUS PRECAUTIONS;ENCOURAGED TO CALL FOR ASSISTANCE IF NEEDED;CALL LIGHT IN REACH;FREQUENT ROUNDS MADE.
--- NOTE | 2023-11-18 16:30 | NUR ---
PT RESTING IN SEMI FOWLERS POSITION;RESPIRATIONS EVEN AND UNLABORED ON RA;PT DENIES ANY CURRENT PAIN OR NEEDS;TELE MONITORING IN PLACE;IV SITE PATENT INFUSING WITH EASE;PT CLEANSED OF A MODERATE AMOUNT OF BROWN/LOOSE BM;PT DENIES ANY ADDITIONAL NEEDS;CALL LIGHT IN REACH;FREQUENT ROUNDS MADE.
--- NOTE | 2023-11-18 20:06 | NUR ---
RECEIVED REPROT FROM [facility] NURSE TRINA SAPP. PT NOTED LAYING IN BED, SUPINE. CONTACT PRECAUTIONS IN PLACE PER PROTOCOL. PT IS A/OX3, RM AIR, C/O ABD PAIN 5 OUT OF 10. PHYSICIAN INFORMED, AWAITING NEW ORDERS. TELE MONITOR IN PLACE, IV SITE APPEARS HEALTHY AND INTACT WITH FLUIDS RUNNING PER EMAR. ASSESSMET COMPLETED, BOWEL SOUNDS HYPERACTIVE AND PT BUTTOCKS DOES PRESENT RED. PT STATES SHE IS STILL HAVING "LOOSE STOOLS BUT IT FEELS LIKE ITS LESS." EDUCATED PT ON PLAN OF CARE AND MED SCHEDULE FOR TONIGHT. CALL LIGHT WITHIN REACH AND SAFETY PRECAUTIONS IN PLACE.
[2023-11-18] MEDS ORDERED: CODEINE SULFATE PO PRN (20:35)
--- NOTE | 2023-11-18 23:02 | NUR ---
PT USED CALL LIGHT, NOTED SITTING UP IN BED. UPON ENTERING PT ASKED "WHY AM I HERE? WHAT'S GOING ON?" PT PRESENTING CONFUSED AND DISORIENTED. REORIENTED PT OF PLACE, PLAN OF CARE AND REASON FOR STAY. PT STATES "I KNOW IM AT [facility], I KNOW I HAD C.DIFF I WAS TREATED FOR. BUT I DONT UNDERSTAND WHAT'S GOING ON." VITALS RECEIVED, WNL. PT BLOOD SUGAR CHECKED, GLUCOMETER READING 124. PT DENIES ANY PAIN OR DISCOMFORT AT THIS TIME. WHEN ASKED PT TO DESCRIBE HOW THEY ARE FEELING SHE STATED "IM JUST FEELING FUZZY, I FEEL LIKE IM GOINMG CRAZY." OFFERED PT ICE WATER AND ASSISTED WITH REPOSTIONING IN BED. ENCOURAGED PT TO TRY TO GET SOME REST. NURSING CHIEF PROCUREMENT OFFICER WAS INFORMED OF PT STATUS AT THIS TIME.
--- NOTE | 2023-11-19 00:34 | NUR ---
PT STATES "FEELING BACK TO NORMAL" PT IS A/OX3, NOT PRESENTING DISORIENTED OR CONFUSED. PT ADMINSTERED SCHEDULED ABX PER EMAR. PT REPOSITIONED SUPINE IN BED AND ENCOURAGED TO GET SOME SLEEP. LIGHTS DIMMED FOR COMFORT. CALL LIGHT WITHIN REACH AND SAFETY PRECAUTIONS IN PLACE.
[2023-11-19 04:00] VITALS: BP 132/60
--- NOTE | 2023-11-19 04:42 | NUR ---
PT C/O RT SHOULDER PAIN, STATING "I DONT KNOW IF I PULLED IT WHEN TRYING TO PULL MYSELF UP IN THE BED" EDUCATED PT TO USE CALL LIGHT NEXT TIME FOR ASSITANCE WHEN NEEDING TO REPOSITION. PT LAYING IN BED SEMI FOWLERS. CALL LIGHT WITHIN REACH AND SAFETY PRECAUTIONS IN PLACE.
[2023-11-19 05:03] LABS: BASO% 0.5 % (0-3); EOS% 1.4 % (0-8); HEMATOCRIT 31.9 % (37.0-47.0); HEMOGLOBIN 10.7 g/dl (12.0-16.0); IMMATURE GRANULOCYTES 1.9 % (0.0-5.0); LYMPH% 12.8 % (15-41); MEAN CELL VOLUME 98.8 fL CALC (80.0-100.0); MEAN CORPUSCULAR HGB 33.1 pG CALC (26.0-32.0); MEAN CORPUSCULAR HGB CONC 33.5 g/dL CAL (32.0-36.0); MONO% 17.4 % (2-13); NEUT# 3.86 thou/uL (2.00-7.15); RED BLOOD COUNT 3.23 mill/uL (4.20-5.60); RED CELL DISTRI WIDTH 15.2 % (11.5-15.5)
[2023-11-19 05:09] LABS: ALBUMIN 1.6 g/dL (3.2-5.0); BILIRUBIN, TOTAL 0.2 mg/dL (0.02-1.3); CREATININE 0.7 mg/dL (0.5-1.0); MAGNESIUM 1.7 mg/dL (1.6-2.3); TOTAL PROTEIN 3.8 g/dL (6.3-8.2)
[2023-11-19 05:14] LABS: POTASSIUM 3.7 mmol/l (3.5-5.1)
[2023-11-19] MEDS ORDERED: HYDROcodone 5 MG/Acetaminophen 325 MG/COMBO PO PRN (06:20)
--- NOTE | 2023-11-19 06:45 | NUR ---
patient up in recliner with staff assistance.
[2023-11-19 06:53] VITALS: BP 120/58
[2023-11-19] MEDS ORDERED: MAGNESIUM SULFATE HEPTAHYDRATE 50 ML IV SCH (08:00)
--- NOTE | 2023-11-19 08:00 | NUR ---
REPORT RECEIVED FROM NIGHT RN. MOVED PATIENT BACK TO BED. PATIENT HAD TWO LOOSE BOWEL MOVEMENTS. CALL LIGHT IN REACH. VSS.
[2023-11-19] MEDS ORDERED: MULTIPLE VITAMIN TABLET PO SCH (09:00)
[2023-11-19 10:16] VITALS: BP 121/56
[2023-11-19] MEDS ORDERED: PANCREATIC ENZYMES 12 000 UNITS LIPASE PO SCH (12:00)
--- NOTE | 2023-11-19 12:00 | NUR ---
PATIENT LAYING DOWN IN BED RESTING. DENIES ANY NEEDS AT THIS TIME. CALL LIGHT IN REACH. VSS.
[2023-11-19 14:43] VITALS: BP 118/57
--- NOTE | 2023-11-19 16:00 | NUR ---
PATIENT LAYING DOWN IN BED SLEEPING. ALL NEEDS MET. CALL LIGHT IN REACH. VSS.
[2023-11-19 19:22] VITALS: BP 113/58
--- NOTE | 2023-11-19 20:00 | NUR ---
REPORT RECIEVED FROM [facility] NURSE. TEJAS RN. PT RESTING IN BED, WITH NO COMPLAINTS OFFERED AT THIS TIME. PT IS A&O X3, AND ABLE TO MAKE NEEDS KNOWN. BED ALARM ACTIVE AT THIS TIME. PT DENIES PAIN. PT STATES THAT HER LAST BM WAS TODAY, AND THAT IT WAS LOOSE. LOWER LOBES DIMINSHED UPON AUSCULTATION OF LUNG SOUNDS. ABDOMEN IS SOFT, AND BOWEL SOUNDS ARE ACTIVE X4 QUADRANTS. +2 PITTING EDEMA NOTED TO BILATERAL FEET, PT STATES THAT THIS IS SOMETHING NEW. #22 NOTED TO THE (L) FA WITH NS @75 ML/HR. PT REMAINS ON CONTACT + PRECAUTIONS AT THIS TIME. PT EDUCATED ON POC AND MEDICATION SCHEUDLE. CALL LIGHT IN REACH, AND SAFETY PRECAUTIONS IN PLACE.
[2023-11-20 00:17] VITALS: BP 132/57
--- NOTE | 2023-11-20 00:30 | NUR ---
ASSISGNED ORE STORAGE DRIER AT BEDSIDE ASSISTING PT IN KRISTAN CARE AND A CHANGE. NO S&S OF DISTRESS NOTED FROM PT. PT DOES NOT OFFER ANY COMPLAINTS AT THIS TIME. TELE REMAINS IN PLACE. CALL LIGHT IN REACH, AND SAFETY PRECAUTIONS IN PLACE.
[2023-11-20 04:18] VITALS: BP 116/53
--- NOTE | 2023-11-20 04:45 | NUR ---
PT RESTING IN BED WITH EYES CLOSED. RESPIRATIONS ARE EVEN AND UNLABORED. PT IS EASILY AROUSABLE. NO S&S OF DISTRESS NOTED AT THIS TIME. TELE MONITOR REMAINS IN PLACE. CALL LIGHT IN REACH, AND SAFETY PRECAUTIONS IN PLACE.
[2023-11-20 05:45] LABS: BASO% 1.2 % (0-3); EOS% 1.5 % (0-8); HEMATOCRIT 28.8 % (37.0-47.0); IMMATURE GRANULOCYTES 1.8 % (0.0-5.0); LYMPH% 12.3 % (15-41); MEAN CELL VOLUME 97.3 fL CALC (80.0-100.0); MEAN CORPUSCULAR HGB 33.8 pG CALC (26.0-32.0); MEAN CORPUSCULAR HGB CONC 34.7 g/dL CAL (32.0-36.0); MONO% 19.2 % (2-13); NEUT# 3.84 thou/uL (2.00-7.15); RED BLOOD COUNT 2.96 mill/uL (4.20-5.60)
[2023-11-20 05:57] LABS: ALBUMIN 1.5 g/dL (3.2-5.0); CREATININE 0.7 mg/dL (0.5-1.0); MAGNESIUM 1.8 mg/dL (1.6-2.3); POTASSIUM 3.4 mmol/l (3.5-5.1); TOTAL PROTEIN 3.5 g/dL (6.3-8.2)
[2023-11-20 06:09] LABS: BILIRUBIN, TOTAL 0.1 mg/dL (0.02-1.3)
[2023-11-20 07:20] VITALS: BP 118/53
[2023-11-20 11:12] VITALS: BP 126/54
[2023-11-20] MEDS ORDERED: VANCOMYCIN HCL250 M1 PO (11:21)
[2023-11-20] MEDS ORDERED: FUROSEMIDE 40 MG/TAB PO SCH (11:30)
--- NOTE | 2023-11-20 17:31 | NUR ---
PT SITTING IN BED EATING DINNER. MEDICATED FOR ABDOMINAL PAIN PER HER REQUEST. FAMILY AT BEDSIDE. PT DENIES ANY OTHER NEEDS AT THIS TIME.
[2023-11-20 18:47] VITALS: BP 104/48
--- NOTE | 2023-11-20 20:00 | NUR ---
PT RESTING IN BED, WITH NO S&S OF DISTRESS. PT IS A&O X3, AND ABLE TO MAKE NEEDS KNOWN. PT REMAINS ON TELE AT THIS TIME. PT IS ON ROOM AIR. PT DOES NOT HAVE AN IV AT THIS TIME. PT STATES THAT HER LAST BM WAS TODAY, AND THAT IT WAS FORMED. LUNG SOUNDS CLEAR UPON AUSCULTATION. ABDOMEN IS SOFT, WITH BOWEL SOUNDS ACTIVE X4 QUADRANTS. PITTING EDEMA NOTED TO BILATERAL FEET WITH +2 PITTING EDEMA. PT DENIES PAIN AT THIS TIME. PT EDUCATED ON MEDICACTION SCHEDULE AND POC. PEDAL PULSES WEAK X2. RADIAL PULSES STRONG. CALL LIGHT IN REACH, AND SAFETY PRECAUTIONS IN PLACE.
[2023-11-20 23:20] VITALS: BP 130/68
--- NOTE | 2023-11-21 00:15 | NUR ---
PT RESTING IN BED WITH EYES CLOSED. PT DOES NOT OFFER ANY COMPLAINTS AT THIS TIME. RESPIRATIONS ARE EVEN AND UNLABORED, AND PT IS EASILY AROUSABLE. NO S&S OF DISTRESS NOTED AT THIS TIME. CALL LIGHT IN REACH, AND SAFETY PRECAUTIONS IN PLACE.
--- NOTE | 2023-11-21 04:00 | NUR ---
PT RESTING IN BED WITH EYES CLOSED. RESPIRATIONS ARE EVEN AND UNLABORED. PT IS EASILY AROUSABLE. TELE MONITOR REMAINS IN PLACE. NO S&S OF DISTRESS NOTED AT THIS TIME. CALL LIGHT IN REACH, AND SAFETY PRECAUTIONS IN PLACE.
[2023-11-21 04:24] VITALS: BP 108/50
[2023-11-21 05:17] VITALS: BP 108/50
[2023-11-21 05:27] LABS: BASO% 0.9 % (0-3); EOS% 1.8 % (0-8); HEMATOCRIT 29.5 % (37.0-47.0); HEMOGLOBIN 10.1 g/dl (12.0-16.0); IMMATURE GRANULOCYTES 1.8 % (0.0-5.0); MEAN CORPUSCULAR HGB 33.2 pG CALC (26.0-32.0); MEAN CORPUSCULAR HGB CONC 34.2 g/dL CAL (32.0-36.0); MONO% 19.1 % (2-13); NEUT# 4.14 thou/uL (2.00-7.15); NEUT% 63.4 % (42-76); RED BLOOD COUNT 3.04 mill/uL (4.20-5.60); RED CELL DISTRI WIDTH 14.8 % (11.5-15.5)
[2023-11-21 05:47] LABS: ALBUMIN 1.6 g/dL (3.2-5.0); CREATININE 0.8 mg/dL (0.5-1.0); MAGNESIUM 1.6 mg/dL (1.6-2.3); POTASSIUM 3.2 mmol/l (3.5-5.1); TOTAL PROTEIN 3.7 g/dL (6.3-8.2)
[2023-11-21 05:50] LABS: BILIRUBIN, TOTAL 0.2 mg/dL (0.02-1.3)
[2023-11-21 06:14] LABS: TSH, 3RD GENERATION 3.66 uIU/mL (0.47 - 4.68)
--- NOTE | 2023-11-21 07:05 | NUR ---
REPORT RECEIVED FROM JUAN ARN
[2023-11-21 07:11] VITALS: BP 128/56
[2023-11-21] MEDS ORDERED: POTASSIUM CHLORIDE 20 MEQ/TAB PO SCH (08:00)
--- NOTE | 2023-11-21 08:25 | NUR ---
PT RESTING IN SEMI FOWLERS POSITION,A&O X3;PT REPORTS ABDOMINAL PAIN RATING 6/10 ON THE PAIN SCALE AND REQUESTS PAIN MEDICATION, PT MEDICATED WITH PRN CODEINE 30MG PO;ASSESSMENT COMPLETED;RESPIRATIONS EVEN AND UNLABORED ON RA,CLEAR LUNG SOUNDS;ABDOMEN SOFT ON PALPATION AND ACTIVE IN ALL 4 QUADRANTS;STRONG PEDAL PULSES;SKIN INTACT;TELE MONITORING IN PLACE;NO IV, MD AWARE;PT ON CONTACT PLUS PRECAUTIONS FOR CDIFF;PT DENIES ANY ADDITIONAL NEEDS AND IS ENCOURAGED TO CALL FOR ASSISTANCE IF NEEDED;FALL PRECAUTIONS IN PLACE WITH BED IN THE LOWEST POSITION AND CALL LIGHT IN REACH;FREQUENT ROUNDS MADE.
[2023-11-21 10:39] VITALS: BP 130/60
--- NOTE | 2023-11-21 11:10 | NUR ---
PT RESTING IN SEMI FOWLERS POSITION;RESPIRATIONS EVEN AND UNLABORED ON RA;PT DENIES ANY CURRENT PAIN OR DISCOMFORTS;TELE MONITORING IN PLACE;NO IV, MD REMAINS AWARE;PT REMAINS ON CONTACT PRECAUTIONS FOR CDIFF;ENCOURAGED TO CALL FOR ASSISTANCE IF NEEDED;CALL LIGHT IN REACH;FREQUENT ROUNDS MADE.
--- NOTE | 2023-11-21 11:24 | NUR ---
AT BEDSIDE DISCUSSING POC WITH PT.
--- NOTE | 2023-11-21 15:30 | NUR ---
PT RESTING IN SEMI FOWLERS POSITION;RESPIRATIONS EVEN AND UNLABORED ON RA;PT DENIES ANY CURRENT PAIN OR DISCOMFORTS;TELE MONITORING IN PLACE;PT EDUCATED ON PLANS TO TRANSFERRED TO [facility] ROOM 205 AT APPROX 1800 AND VERBALIZES UNDERSTANDING;PT DENIES ANY ADDITIONAL NEEDS AND IS ENCOURAGED TO CALL FOR ASSISTANCE IF NEEDED;CALL LIGHT IN REACH;FREQUENT ROUNDS MADE.
[2023-11-21 15:31] VITALS: BP 108/50
--- NOTE | 2023-11-21 17:10 | NUR ---
PT MEDICATED WITH PRN LORTAB 5/325MG PO FOR ABDOMINAL PAIN RATING 5/10 ON THE PAIN SCALE, FREQUENT ROUNDS MADE.
--- NOTE | 2023-11-21 17:14 | NUR ---
REPORT CALLED TO GABRIEL LIZAMA AT [facility].
--- NOTE | 2023-11-21 18:04 | NUR ---
PT TRANSPORTED TO [facility] VIA WC ACCOMPANIED BY [facility] STAFF MEMBER IN STABLE CONDITION. ALL PERSONAL BELONGINGS LEFT WITH PT AT THIS TIME.
--- NOTE | 2023-11-21 18:06 | NUR ---
Discharge instructions given. Patient verbalizes understanding of same. Discharged in stable condition via [facility] to [facility] with *Other. All belongings sent with pt. PT TRANSPORTED IN STABLE CONDITION VIA [employer] VIA [facility] [facility] TRANSPORT.
== END 2023-11-21 18:00 | DRG 872 ==
LOC: ED 19:09 → ED-I 19:29 → ED 21:16 → ICU 21:17 → MS2 21:17
PROVIDERS: Emergency Medicine; Student in an Organized Health Care Education/Training Program; ADMIT Internal Medicine; ATTEND Internal Medicine
PROC: 30233N1 Transfusion of Nonautologous Red Blood Cells into Peripheral Vein, Percutaneous Approach (ICD-10-PCS; principal; 2023-11-12)
DX: A41.9 Sepsis, unspecified organism (principal); A04.72 Enterocolitis due to Clostridium difficile, not specified as recurrent; C90.01 Multiple myeloma in remission; Z94.84 Stem cells transplant status; N17.9 Acute kidney failure, unspecified; A02.0 Salmonella enteritis; R65.20 Severe sepsis without septic shock; E11.9 Type 2 diabetes mellitus without complications; E83.42 Hypomagnesemia; E87.6 Hypokalemia; E03.9 Hypothyroidism, unspecified; F41.9 Anxiety disorder, unspecified; D64.9 Anemia, unspecified; E86.0 Dehydration; G47.00 Insomnia, unspecified; K86.89 Other specified diseases of pancreas; Z90.411 Acquired partial absence of pancreas; Z79.84 Long term (current) use of oral hypoglycemic drugs
CPT/HCPCS: J0692; J3475; P9016